=== PATIENT | female | born 1980 | race Caucasian/White ===

== ENCOUNTER 2018-04-30 01:17 | Emergency (ER) | payer OTHER ==
[~2018-04-30] VITALS: Ht 149.9 cm; Wt 54.4 kg
[2018-04-30 01:40] VITALS: BP_SYST 119
--- NOTE | 2018-04-30 01:40 | NUR ---
Pt ambulatory to bed 4 for evaluation
--- NOTE | 2018-04-30 01:45 | NUR ---
Dr Hampton at bedside to evaluate patient.
--- NOTE | 2018-04-30 01:50 | NUR ---
Patient to ER via triage with c/o pain upon urination, patient to bathroom on way to bed 4 to provide urine sample, which was sent to lab. Patient is awake, alert and oriented in no acutes distress, vital signs stable, respirations even and unlabored, skin warm and dry to touch. Patient denies taking any pain medication while at home. Patient has been seen and evaluated by Dr Hampton, will continue to observe and assess.
[2018-04-30 02:01] LABS: BILIRUBIN,URINE NEGATIVE (NEGATIVE); BLOOD, URINE NEGATIVE (NEGATIVE); CLARITY/URINE CLEAR (CLEAR); COLOR,URINE YELLOW (YELLOW); GLUCOSE,URINE NEGATIVE (NEGATIVE); KETONES,URINE TRACE (NEGATIVE); LEUKOCYTE ESTERASE ,URINE 1+ (NEGATIVE); NITRITE, URINE NEGATIVE (NEGATIVE); PROTEIN URINE NEGATIVE (NEGATIVE)
[2018-04-30 02:12] LABS: BACTERIA,URINE MANY /HPF (None Seen); MUCUS,URINE None Seen /LPF (None Seen); RBC,URINE 0-3 /HPF (0-3)
[2018-04-30] MEDS ORDERED: cefTRIAXone 1 GM VIAL IM ONE (02:15)
[2018-04-30 02:40] VITALS: BP_SYST 116
--- NOTE | 2018-04-30 02:40 | NUR ---
Patient given written and verbal discharge instructions and verbalizes understanding. ER MD discussed with patient the results and treatment provided. Patient in stable condition. ID arm band removed. Rx of Cipro given. Patient educated on pain management and to follow up with PMD. Pain Scale 0. Opportunity for questions provided and answered. Medication side effect fact sheet provided. Patient left ER ambulating without difficulty with slow, steady gait in no acute distress. No adverse reaction noted to medication.
== END 2018-04-30 02:40 | disposition home or self-care (01) ==
LOC: SED 01:17
DX: N39.0 Urinary tract infection, site not specified (principal)
CPT/HCPCS: 81000; 81025; 87086; 87186; 96372; 99284; J0696

== ENCOUNTER 2018-06-24 23:58 | Emergency (ER) | payer OTHER ==
[~2018-06-24] VITALS: Ht 149.9 cm; Wt 52.6 kg
[2018-06-25 00:27] VITALS: BP_SYST 121
[2018-06-25 01:09] LABS: BILIRUBIN,URINE NEGATIVE (NEGATIVE); BLOOD, URINE NEGATIVE (NEGATIVE); CLARITY/URINE SL CLOUDY (CLEAR); COLOR,URINE YELLOW (YELLOW); GLUCOSE,URINE NEGATIVE (NEGATIVE); KETONES,URINE NEGATIVE (NEGATIVE); LEUKOCYTE ESTERASE ,URINE TRACE (NEGATIVE); NITRITE, URINE POSITIVE (NEGATIVE); PROTEIN URINE TRACE (NEGATIVE)
[2018-06-25 01:12] LABS: BACTERIA,URINE MANY /HPF (None Seen); MUCUS,URINE 1+ /LPF (None Seen); RBC,URINE 0-3 /HPF (0-3); WBC,URINE 20-50 /HPF (0-3)
[2018-06-25] MEDS ORDERED: PHENAZOPYRIDINE HCL 100 MG TABLET PO ONE (01:30)
[2018-06-25] MEDS ORDERED: cefTRIAXone 1 GM VIAL IM ONE (01:30)
[2018-06-25] MEDS ORDERED: LIDOCAINE 1%, 20 ML MDV 20 ML ONE (01:38)
[2018-06-25 01:49] VITALS: BP_SYST 118
== END 2018-06-25 01:49 | disposition home or self-care (01) ==
LOC: SED 23:58
DX: N39.0 Urinary tract infection, site not specified (principal); Z90.49 Acquired absence of other specified parts of digestive tract
CPT/HCPCS: 81000; 87086; 96372; 99284; J0696; J2001; 87186-TC